=== PATIENT | male | born 1995 | race African-American/Black ===

== ENCOUNTER 2017-05-06 13:59 | Observation (INO) | payer MEDICAID, OTHER ==
[~2017-05-06] VITALS: Ht 182.9 cm; Wt 86.2 kg
[2017-05-06 14:06] VITALS: BP 119/65
[2017-05-06] MEDS ORDERED: SODIUM CHLORIDE 0.9% 1,000 ML IVB ONE (19:37)
[2017-05-06] MEDS ORDERED: ONDANSETRON HCL 4 MG/2 ML VIAL IV ONE (19:45)
== END 2017-05-06 19:40 | disposition left against medical advice (07) | DRG 249 ==
LOC: ER 13:59 → OVERFLOW 19:39 → ER 19:39
PROVIDERS: ADMIT Family Medicine; ATTEND Family Medicine
DX: R11.2 Nausea with vomiting, unspecified (principal)
CPT/HCPCS: 99281; G0378

== ENCOUNTER 2023-02-06 08:45 | Emergency (ER) | payer MEDICAID, OTHER ==
[~2023-02-06] VITALS: Ht 185.4 cm; Wt 83.1 kg
[2023-02-06 09:22] VITALS: BP 130/72; PULSE 108; RESP 18; TEMP 99; O2SAT 95
[2023-02-06] MEDS ORDERED: CEPH500C PO (09:45)
[2023-02-06] MEDS ORDERED: IBUP-1456 PO (09:45)
[2023-02-06] MEDS ORDERED: METH-1182 PO ×2 (09:45)
== END 2023-02-06 09:47 | disposition home or self-care (01) ==
LOC: ER 08:45
DX: K04.7 Periapical abscess without sinus (principal); Z79.1 Long term (current) use of non-steroidal anti-inflammatories (NSAID); Z79.899 Other long term (current) drug therapy

== ENCOUNTER 2023-05-04 02:41 | Emergency (ER) | payer MEDICAID ==
[~2023-05-04] VITALS: Ht 185.4 cm; Wt 88.6 kg
[~2023-05-04 02:41] MED LIST: CEPH500C PO; IBUP-1456 PO
[2023-05-04 03:06] VITALS: BP 117/63; PULSE 63; RESP 18; TEMP 98
[2023-05-04 03:53] VITALS: O2SAT 98
[2023-05-04] MEDS ORDERED: BENZOCAINE (DENTAL) 20 % SPRAY 60ML MT ONE (04:00)
[2023-05-04] MEDS ORDERED: KETOROLAC TROMETH 30 MG/ML 1ML VIAL IM ONE (04:00)
[2023-05-04] MEDS ORDERED: AUG875T PO (04:23)
[2023-05-04] MEDS ORDERED: IBUP-1456 PO (04:41)
== END 2023-05-04 04:49 | disposition home or self-care (01) ==
LOC: ER 02:41
DX: K08.89 Other specified disorders of teeth and supporting structures (principal); R68.84 Jaw pain; Z79.899 Other long term (current) drug therapy
CPT/HCPCS: 96372; 99283; J1885

== ENCOUNTER 2024-01-02 03:55 | Emergency (ER) | payer MEDICAID, OTHER ==
[~2024-01-02] VITALS: Ht 182.9 cm; Wt 92.1 kg
[~2024-01-02 03:55] MED LIST changes: +AUG875T PO
[2024-01-02 04:05] VITALS: BP 132/79; PULSE 109; RESP 20; O2SAT 96
[2024-01-02] MEDS ORDERED: NAP500T GT (04:37)
[2024-01-02] MEDS ORDERED: CLIN1CAP70 PO (04:37)
[2024-01-02] MEDS: ACETAMINOPHEN 325 MG TAB PO ONE (05:04)
[2024-01-02] MEDS: HYDROcodone-ACET 5/325MG TAB PO ONE (05:04)
[2024-01-02] MEDS: PENICILLIN G BENZ 1,200,000 UNITS/2 ML SYRG IM ONE (05:05)
== END 2024-01-02 05:12 | disposition home or self-care (01) ==
LOC: ER 03:55
DX: K04.7 Periapical abscess without sinus (principal)
CPT/HCPCS: 96372; 99283; J0561

== ENCOUNTER 2024-04-26 09:29 | Emergency (ER) | payer OTHER ==
[~2024-04-26] VITALS: Ht 193 cm; Wt 93.2 kg
[~2024-04-26 09:29] MED LIST changes: +CLIN1CAP70 PO; +NAP500T GT
[2024-04-26 10:02] VITALS: BP 140/80; PULSE 90; RESP 18; TEMP 98.7; O2SAT 98
--- NOTE | 2024-04-26 10:07 | ED.PDOC ---
Eye-HPI HPI Comments Presents for left neck tenderness Also here for tooth infection Symptoms started 7 days Has been here a number of times for same complaint. Therapies tried: OTC medication with some improvement Dental care: 1 year ago Denies f/c/n/v/d cp/sob Chief Complaint: Tooth Pain Time Seen by MD: 09:37 Primary Care Provider: DENIES Reviewed Notes: Nurses Notes, Medications, Allergies Allergies: Coded Allergies: NO KNOWN ALLERGIES (Unverified , 07/23/15) Home Meds Active Scripts Lidocaine HCl (Mouth-Throat) (Lidocaine HCl Viscous) 2 % Pearl, 15 ML MT TID for 2 Days, #200 ML 0 Refills Prov:SAIGE BEAULIEU NP 04/26/24 Acetaminophen (Acetaminophen) 500 Mg Tab, 500 MG PO QIDP for 14 Days, #56 TAB 0 Refills Prov:SAIGE BEAULIEU NP 04/26/24 Chlorhexidine Gluconate (Mouth (CHLORHEXIDINE ORAL RINSE) 473 Ml So, 15 ML MT Q12HR for 30 Days, #150 ML 0 Refills Prov:SAIGE BEAULIEU NP 04/26/24 Clindamycin Hcl (Clindamycin Hcl) 300 Mg Cap, 300 MG PO QID for 10 Days, #40 CAP Prov:HERNAN TAMAYO MD 01/02/24 Naproxen (NAPROSYN TABLET) 500 Mg Tb, 500 MG GT BID for 10 Days, #20 TAB Prov:HERNAN TAMAYO MD 01/02/24 Ibuprofen (Ibuprofen) 800 Mg Tab, 1 TAB PO TID, #30 TAB Prov:SHAMEKA CULLEN 05/04/23 Amoxicillin & Pot Clavulanate (AUGMENTIN TABLET) 875 Mg Tb, 875 MG PO BID for 7 Days, #14 TAB Prov:SHAMEKA CULLEN PAC 05/04/23 Cephalexin Monohydrate (Cephalexin) 500 Mg Cap, 2 CAP PO QID, #40 CAP Prov:HARDY BUSBY 02/06/23 Information Source: Patient Mode of Arrival: Ambulatory Past Medical History PAST MEDICAL HISTORY: Denies Surgical History: Denies all surgeries Family History Family History: Reviewed,noncontributory to illness Social History Smoker: Non-Smoker Alcohol: Denies ETOH Use Drugs: Denies Drug Use Lives In: Home All Other Systems: Reviewed and Negative (Per HPI) Physical Exam General Appearance: No Apparent Distress, Normal HEENT: Normal ENT Inspection, Pharynx Normal, TMs Normal, Other (Visible tonsil stone to the left tonsil. Also visible dental caries) Neck: Full Range of Motion, Non-Tender, Normal, Normal Inspection Respiratory: Chest Non-Tender, Lungs Clear, No Accessory Muscle Use, No Res piratory Distress, Normal Breath Sounds Cardiovascular: No Edema, No JVD, No Murmur, No Gallop, Normal Peripheral Pulses, Regular Rate/Rhythm Breast Exam: Deferred Gastrointestinal: No Organomegaly, Non Tender, No Pulsatile Mass, Normal Bowel Sounds, Soft Genitalia: Deferred Pelvic: Deferred Rectal: Deferred Extremities: No calf tenderness, Normal capillary refill, Normal inspection, Normal range of motion, Non-tender, No pedal edema Musculoskeletal : Apperance: Normal Neurologic: Alert, 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 Was a procedure done?: No EENT DIFF Eye: Other X-Ray, Labs, Meds, VS Vital Signs Date Time Temp Pulse Resp B/P (MAP) Pulse Ox O2 Delivery O2 Flow Rate FiO2 04/26/24 10:02 90 18 98 Room Air 04/26/24 10:02 98.7 90 16 140/80 (100) 98 98.7 04/26/24 09:38 99.0 89 18 144/84 (104) 98 X-Ray, Labs, Meds, VS Comment Patient is stable for discharge at this time. External notes reviewed. Test results and diagnostic imaging interpreted. All diagnostic findings, discharge care, education and instructions provided Follow-up with PCP in 2 to 3 days Patient verbalized understanding and agreed to treatment plan Vital signs stable, afebrile, no acute distress noted Patient ambulatory with strong steady gait Advised to return precautions for any new or worsening symptoms, return to ER immediately for re-evaluation Patient is aware that the purpose of this visit was for an acute medical e mergency requiring emergent stabilization. Chronic conditions, including malignancies have not been ruled out. Patient is instructed to follow up with PCP as directed and discharge instructions for continued care and workup. If unable to arrange follow-up, patient is to return to the emergency department for reassessment. Patient (parent or legal guardian if applicable) was given verbal and written discharge instructions and acknowledges understanding. Time of 1ST Reevaluation: 10:00 Reevaluation 1ST: Improved Patient Education/Counseling: Diagnosis, Treatment Family Education/Counseling: Diagnosis, Treatment Departure 1 Departure Time of Disposition: 10:14 Impression: Primary Impression: Tonsil stone Disposition: HOME / SELF CARE / HOMELESS Condition: Stable e-Prescriptions Lidocaine HCl (Mouth-Throat) (Lidocaine HCl Viscous) 2 % Pearl 15 ML MT TID for 2 Days, #200 ML 0 Refills Prov: SAIGE BEAULIEU NP 04/26/24 Acetaminophen (Acetaminophen) 500 Mg Tab 500 MG PO QIDP for 14 Days, #56 TAB 0 Refills Prov: SAIGE BEAULIEU NP 04/26/24 Chlorhexidine Gluconate (Mouth (CHLORHEXIDINE ORAL RINSE) 473 Ml So 15 ML MT Q12HR for 30 Days, #150 ML 0 Refills Prov: SAIGE BEAULIEU NP 04/26/24 Discharged With: Self Critical Care Note Critical Care Time?: No Stability Stability form required: No Heart Score Heart Score: Heart Score Response (Comments) Value History N/A 0 EKG N/A 0 Age N/A 0 Risk Factors N/A 0 Troponin N/A 0 Total 0 SAIGE BEAULIEU NP Apr 26, 2024 10:07
[2024-04-26] MEDS ORDERED: CHL12OR MT (10:17)
[2024-04-26] MEDS ORDERED: LIDO2SOL26 MT (10:17)
[2024-04-26] MEDS ORDERED: ACET500T58 PO (10:17)
== END 2024-04-26 10:32 | disposition home or self-care (01) ==
LOC: ER 09:29
DX: J35.8 Other chronic diseases of tonsils and adenoids (principal); Z79.899 Other long term (current) drug therapy

== ENCOUNTER 2024-04-26 10:40 | Emergency (ER) | payer OTHER ==
[~2024-04-26] VITALS: Ht 182.9 cm; Wt 93.1 kg
[~2024-04-26 10:40] MED LIST changes: +ACET500T58 PO; +CHL12OR MT; +LIDO2SOL26 MT
--- NOTE | 2024-04-26 10:57 | ED.PDOC ---
Eye-HPI HPI Comments This is a pleasant 26-year-old gentleman who was just seen 5 minutes ago for the same complaint. Patient upset that opioids were not prescribed for his tonsil stones. Requesting a dose of Freeborn Chief Complaint: Tooth Pain Time Seen by MD: 10:49 Primary Care Provider: NONE Reviewed Notes: Nurses Notes, Medications, Allergies Allergies: Coded Allergies: NO KNOWN ALLERGIES (Unverified , 07/23/15) Home Meds Active Scripts Lidocaine HCl (Mouth-Throat) (Lidocaine HCl Viscous) 2 % Pearl, 15 ML MT TID for 2 Days, #200 ML 0 Refills Prov:SAIGE BEAULIEU NP 04/26/24 Acetaminophen (Acetaminophen) 500 Mg Tab, 500 MG PO QIDP for 14 Days, #56 TAB 0 Refills Prov:SAIGE BEAULIEU NP 04/26/24 Chlorhexidine Gluconate (Mouth (CHLORHEXIDINE ORAL RINSE) 473 Ml So, 15 ML MT Q12HR for 30 Days, #150 ML 0 Refills Prov:SAIGE BEAULIEU NP 04/26/24 Clindamycin Hcl (Clindamycin Hcl) 300 Mg Cap, 300 MG PO QID for 10 Days, #40 CAP Prov:HERNAN TAMAYO MD 01/02/24 Naproxen (NAPROSYN TABLET) 500 Mg Tb, 500 MG GT BID for 10 Days, #20 TAB Prov:HERNAN TAMAYO MD 01/02/24 Ibuprofen (Ibuprofen) 800 Mg Tab, 1 TAB PO TID, #30 TAB Prov:SHAMEKA CULLEN 05/04/23 Amoxicillin & Pot Clavulanate (AUGMENTIN TABLET) 875 Mg Tb, 875 MG PO BID for 7 Days, #14 TAB Prov:SHAMEKA CULLEN [facility] 05/04/23 Cephalexin Monohydrate (Cephalexin) 500 Mg Cap, 2 CAP PO QID, #40 CAP Prov:HARDY BUSBY 02/06/23 Information Source: Patient Mode of Arrival: Ambulatory Past Medical History PAST MEDICAL HISTORY: Denies Surgical History: Denies all surgeries Family History Family History: Reviewed,noncontributory to illness Social History Smoker: Non-Smoker Alcohol: Denies ETOH Use Drugs: Denies Drug Use Lives In: Home All Other Systems: Reviewed and Negative (Per HPI) Physical Exam General Appearance: No Apparent Distress, Normal HEENT: Normal ENT Inspection, Pharynx Normal, TMs Normal Neck: Full Range of Motion, Non-Tender, Normal, Normal Inspection Respiratory: Chest Non-Tender, Lungs Clear, No Accessory Muscle Use, No Res piratory Distress, Normal Breath Sounds Cardiovascular: No Edema, No JVD, No Murmur, No Gallop, Normal Peripheral Pulses, Regular Rate/Rhythm Breast Exam: Deferred Gastrointestinal: No Organomegaly, Non Tender, No Pulsatile Mass, Normal Bowel Sounds, Soft Genitalia: Deferred Pelvic: Deferred Rectal: Deferred Extremities: No calf tenderness, Normal capillary refill, Normal inspection, Normal range of motion, Non-tender, No pedal edema Musculoskeletal : Apperance: Normal Neurologic: Alert, 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 Was a procedure done?: No EENT DIFF Eye: Other X-Ray, Labs, Meds, VS Vital Signs Date Time Temp Pulse Resp B/P (MAP) Pulse Ox O2 Delivery O2 Flow Rate FiO2 04/26/24 10:42 99.1 70 18 132/84 (100) 100 X-Ray, Labs, Meds, VS Comment Patient has a prescription of Freeborn and I told him I would not be prescribing Freeborn for this visit then patient has stopped cooperating with the exam. Patient stormed out of the department with a steady gait threatening legal action Time of 1ST Reevaluation: 10:56 Reevaluation 1ST: Improved Patient Education/Counseling: Diagnosis, Treatment Family Education/Counseling: Diagnosis, Treatment Departure 1 Departure Time of Disposition: 10:57 Impression: Primary Impression: Tonsil stone Disposition: HOME / SELF CARE / HOMELESS Condition: Stable Discharged With: Self Critical Care Note Critical Care Time?: No Stability Stability form required: No Heart Score Heart Score: Heart Score Response (Comments) Value History N/A 0 EKG N/A 0 Age N/A 0 Risk Factors N/A 0 Troponin N/A 0 Total 0 SAIGE BEAULIEU [employer] Apr 26, 2024 10:57
[2024-04-26 11:16] VITALS: BP 118/76; PULSE 96; RESP 17; O2SAT 100
== END 2024-04-26 10:57 | disposition home or self-care (01) ==
LOC: ER 10:40
DX: J35.8 Other chronic diseases of tonsils and adenoids (principal); Z79.899 Other long term (current) drug therapy